=== PATIENT | female | born 1950 | race Caucasian/White ===

== ENCOUNTER 2019-03-14 15:48 | Inpatient (IN) ==
[2019-03-14] MEDS ORDERED: NS 1,000 ML IV PRN (15:58)
--- NOTE | 2019-03-14 16:05 | PROVIDER DOCUMENTATION ---
HPI-Neurological Disorder - General Stated Complaint: STROKE LIKE SYMPTOMS Time Seen by Provider: 03/14/19 15:52 Source: patient Allergies/Adverse Reactions: Patient Allergies Allergy/AdvReac Type Severity Reaction Status Date / Time No Known Allergies Allergy Verified 03/14/19 16:18 Home Medications: Home Medication List Medication Instructions Recorded Confirmed Last Taken Type Atorvastatin Calcium [Lipitor] 1 tab PO DAILY 03/14/19 03/14/19 03/13/19 History Bisoprolol/Hydrochlorothiazide 1 tab PO DAILY 03/14/19 03/14/19 03/14/19 History [Ziac 10-6.25 mg Tablet] Escitalopram Oxalate [Lexapro] 1 tab PO DAILY 03/14/19 03/14/19 03/13/19 History Levothyroxine Sodium [Synthroid] 1 tab PO DAILY 03/14/19 03/14/19 03/14/19 History - History of Present Illness-Neuro Nature of Presenting Problem: 68 YOF WITH PMH OF HTN AND A-FIB PRESENTS WITH C/O AN EPISODE OF EXPRESSIVE APHASIA, DROOLING AND SENSATION ALTERATION IN THE RLE THAT OCCURRED TODAY AT 218PM. SINCE THAT TIME SYMPTOMS HAVE RESOLVED BUT SHE REPORTS SHE DOES "FEEL A LITTLE FUZZY" NEUROLOGICALLY. SHE DENIES CP, SOB, COUGH, N/V/D, FALLS, HEAD INJURY. HER A FIB IS CONTROLLED ON [employer]. SHE ALSO REPORTS SHE WAS BITTEN BY A DEER TICK 6 WKS AGO BUT WAS TREATED BY PCP FOR THIS Severity: reports: moderate Onset/Duration: reports: 1-3 hours ago (2:18 PM) Timing: reports: improving, gone now Context: reports: impaired speech, paresthesia Approximate time patient was last seen normal?: 14:17 Character of Altered Mental Status: reports: disoriented Any recent trauma/injury?: reports: none Character of Deficits: reports: altered sensation (IN RLE), impaired speech, impaired swallowing (FELT IF SHE WAS DROOLING) New weakness or altered sensation location:: reports: RLE Cognitive Baseline: alert, oriented x3 Gait Baseline: walks without assistance Associated Symptoms: reports: denies symptoms Similar Symptoms Previously?: No Recently seen or treated by another doctor?: No Review of Systems - Adult - REVIEW OF SYSTEMS - ADULT Constitutional: reports: no symptoms reported. denies: see HPI, chills, fever, fatique, night sweats, weight gain, weight loss, other Eyes: reports: no symptoms reported. denies: see HPI, discharge, dry eyes, decreased vision, blurred vision, double vision, eye pain, redness, other Ears, Nose, Mouth & Throat: reports: no symptoms reported. denies: see HPI, ear discharge, ear pain, hearing loss, tinnitus, epistaxis, sinus problem, nose pain, loose teeth, mouth/dental pain, mouth swelling, hoarseness, throat pain, throat swelling, other Cardiovascular: reports: no symptoms reported. denies: see HPI, chest pain, edema, heart murmur, irregular heart rate, orthopnea, palpitations, poor circulation, PND, syncope, other Respiratory: reports: no symptoms reported. denies: see HPI, chronic cough, cough, dyspnea on exertion, excessive sputum production, hemoptysis, pleurisy, shortness of breath, wheezing, other Gastrointestinal: reports: no symptoms reported. denies: see HPI, abdominal pain, hematemesis, constipation, diarrhea, difficulty swallowing, frequent heartburn, nausea, poor appetite, rectal bleeding, vomiting, other Genitourinary: reports: no symptoms reported. denies: see HPI, dysuria, discharge, frequency, flank pain, frequent UTI's, hematuria, hesitency, incontinence, urinary retention, urgency, other Musculoskeletal: reports: no symptoms reported. denies: see HPI, bone pain, back pain, frequent leg cramps, joint pain, joint swelling, muscle aches, muscle weakness, neck pain, other Integumentary: reports: no symptoms reported. denies: see HPI, hives, hair loss, itching, mole changes, nail changes, rash, skin sores/ulcer, skin thickening, other Neurological: reports: see HPI, numbness, paresthesia, slurred speech Psychiatric: reports: no symptoms reported. denies: see HPI, anxiety, anti-dep ressant use, alcohol/drug dependence, depression, emotional problems, insomnia, panic attacks, suicidal thoughts, other Endocrine: reports: no symptoms reported. denies: see HPI, change in skin pigment, excessive sweating, goiter, cold intolerance, heat intolerance, increas ed hunger, increased thirst, polyuria, other Hematologic/Lymphatic: reports: no symptoms reported. denies: see HPI, blood clots, easy bruising, low blood count, lymphedema, prolonged bleeding, swollen lymph nodes, transfusions, other Allergic/Immunologic: reports: no symptoms reported. denies: see HPI, allergic reactions, allergic rhinitis, asthma, eczema, food allergy, frequent infections, hay fever, hives, positive PPD, urticaria, other Past History - Adult - PAST MEDICAL HISTORY-ADULT Review of Records: reports: Nursing Assessment Review, Social history reviewed & non-contributory. Physical Exam- Neurological - Physical Exam-Neuro Initial Vital Signs Reviewed: Yes General Appearance: appears well, alert, no apparent distress Eye Exam: bilateral eye: normal inspection, PERRL, EOMI HENMT: normocephalic/atraumatic, moist mucous membranes, normal ENT inspection Head Injury: no evidence of injury Neck: non-tender, full range of motion, supple Respiratory: chest non-tender, lungs clear, normal breath sounds, no pleuratic chest pain, no respiratory distress, no accessory muscle use Cardiovascular: normal peripheral pulses, regular rate, rhythm, no edema, no gallop, no JVD, no murmur Abdominal Exam: normal bowel sounds, non tender, soft Lymphatic: no adenopathy Peripheral Pulses: radial (R): 2+, radial (L): 2+, dorsalis-pedis (R): 2+, dorsalis-pedis (L): 2+ Extremity: normal range of motion, non-tender, normal gait, normal inspection, no pedal edema 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 negative: abnormal speech, facial droop, facial paresthesias, gaze palsy, hearing deficit (R), hearing deficit (L), tongue deviation to R, tongue deviation to L Coordination/Gait: normal finger to nose, normal gait Motor/Sensory: no motor deficit, no sensory deficit, no pronator drift Neurologic: grossly normal Integumentary: normal color, normal turgor, warm/dry Psych/Mental Status: normal mood/affect, oriented x 3 - Glascow Coma Scale Best Eye Response: (4) open spontaneously Best Verbal Response: (5) oriented Best Motor Response: (6) obeys commands Progress - PLAN OF CARE/RESULTS Progress/Plan/Lab Results: Vital Signs - 8 hr 03/14/19 15:58 03/14/19 17:27 03/14/19 18:00 Temperature 98.0 F 98.7 F Pulse Rate 68 62 56 L Respiratory Rate 18 20 15 Blood Pressure 194/71 178/67 187/74 O2 Sat by Pulse Oximetry 97 98 97 Laboratory Results - last 24 hr 03/14/19 03/14/19 03/14/19 17:19 17:19 17:19 WBC 9.74 RBC 5.07 Hgb 14.7 Hct 44.0 MCV 86.8 MCH 29.0 MCHC 33.4 RDW Std Deviation 14.0 Plt Count 306 MPV 11.1 H Immature Gran % (Auto) 0.3 Neut % (Auto) 64.1 Lymph % (Auto) 25.3 [place] % (Auto) 8.9 Eos % (Auto) 1.2 Baso % (Auto) 0.2 Immature Gran # (Auto) 0.03 Neut # (Auto) 6.24 Lymph # (Auto) 2.46 [place] # (Auto) 0.87 H Eos # (Auto) 0.12 Baso # (Auto) 0.02 PT 13.3 INR 1.00 PTT (Actin FS) 30.0 Sodium 139 Potassium 4.1 Chloride 99 Carbon Dioxide 26 Anion Gap 14 BUN 16 Creatinine 1.2 H Estimated GFR/1.73 m2 45 BUN/Creatinine Ratio 13 Glucose 95 POC Glucose Calculated Osmolality 279 Calcium 9.6 Total Bilirubin 0.18 L AST 26 ALT 25 Alkaline Phosphatase 106 H Troponin T Total Protein 6.9 Albumin 4.5 Globulin 2.4 Albumin/Globulin Ratio 1.9 Urine Source Urine Color Urine Turbidity Urine pH Ur Specific [place] Urine Protein Ur Glucose (Stick) Ur Ketones (Stick) Urine Blood Urine Nitrite Urine Bilirubin Urobilinogen Dipstick Urine Leukocytes Urine WBC (Auto) Urine RBC (Auto) U Epithel Cells (Auto) Urine Bacteria (Auto) Urine Opiates Screen Ur Oxycodone Screen Ur Methadone, Qual Ur Barbiturates Screen Ur Phencyclidine Scrn Ur Amphetamines Screen U Benzodiazepines Scrn Urine Cocaine Screen U Cannabinoids Screen 03/14/19 03/14/19 03/14/19 17:19 17:25 17:25 WBC RBC Hgb Hct MCV MCH MCHC RDW Std Deviation Plt Count MPV Immature Gran % (Auto) Neut % (Auto) Lymph % (Auto) [place] % (Auto) Eos % (Auto) Baso % (Auto) Immature Gran # (Auto) Neut # (Auto) Lymph # (Auto) [place] # (Auto) Eos # (Auto) Baso # (Auto) PT INR PTT (Actin FS) Sodium Potassium Chloride Carbon Dioxide Anion Gap BUN Creatinine Estimated GFR/1.73 m2 BUN/Creatinine Ratio Glucose POC Glucose Calculated Osmolality Calcium Total Bilirubin AST ALT Alkaline Phosphatase Troponin T < 0.010 Total Protein Albumin Globulin Albumin/Globulin Ratio Urine Source CLEAN CATCH Urine Color STRAW Urine Turbidity CLEAR Urine pH 6.5 Ur Specific [place] 1.006 Urine Protein NEGATIVE Ur Glucose (Stick) NEGATIVE Ur Ketones (Stick) NEGATIVE Urine Blood NEGATIVE Urine Nitrite NEGATIVE Urine Bilirubin NEGATIVE Urobilinogen Dipstick NORMAL Urine Leukocytes NEGATIVE Urine WBC (Auto) <10 Urine RBC (Auto) <10 U Epithel Cells (Auto) <10 Urine Bacteria (Auto) NEGATIVE Urine Opiates Screen NONE DETECTED Ur Oxycodone Screen NONE DETECTED Ur Methadone, Qual NONE DETECTED Ur Barbiturates Screen NONE DETECTED Ur Phencyclidine Scrn NONE DETECTED Ur Amphetamines Screen NONE DETECTED U Benzodiazepines Scrn NONE DETECTED Urine Cocaine Screen NONE DETECTED U Cannabinoids Screen NONE DETECTED 03/14/19 17:52 WBC RBC Hgb Hct MCV MCH MCHC RDW Std Deviation Plt Count MPV Immature Gran % (Auto) Neut % (Auto) Lymph % (Auto) [place] % (Auto) Eos % (Auto) Baso % (Auto) Immature Gran # (Auto) Neut # (Auto) Lymph # (Auto) [place] # (Auto) Eos # (Auto) Baso # (Auto) PT INR PTT (Actin FS) Sodium Potassium Chloride Carbon Dioxide Anion Gap BUN Creatinine Estimated GFR/1.73 m2 BUN/Creatinine Ratio Glucose POC Glucose 90 Calculated Osmolality Calcium Total Bilirubin AST ALT Alkaline Phosphatase Troponin T Total Protein Albumin Globulin Albumin/Globulin Ratio Urine Source Urine Color Urine Turbidity Urine pH Ur Specific [place] Urine Protein Ur Glucose (Stick) Ur Ketones (Stick) Urine Blood Urine Nitrite Urine Bilirubin Urobilinogen Dipstick Urine Leukocytes Urine WBC (Auto) Urine RBC (Auto) U Epithel Cells (Auto) Urine Bacteria (Auto) Urine Opiates Screen Ur Oxycodone Screen Ur Methadone, Qual Ur Barbiturates Screen Ur Phencyclidine Scrn Ur Amphetamines Screen U Benzodiazepines Scrn Urine Cocaine Screen U Cannabinoids Screen Orders Category Date Time Status Cardiac Monitoring DIRECTED Care 03/14/19 15:58 Active Finger Stick Blood Sugar (ED) DIRECTED Care 03/14/19 15:58 Completed Saline Loc NOW Care 03/14/19 15:58 Active CHEST-PORTABLE [RAD] Stat Exams 03/14/19 15:[address] HEAD W/O CONTRAST [CT] Stat Exams 03/14/19 15:58 Completed CBC WITH ELECTRONIC DIFF [HEME] Stat Lab 03/14/19 17:19 Completed COMPREHENSIVE METABOLIC PANEL [CHEM] Stat Lab 03/14/19 17:19 Completed PROTIME WITH INR [COAG] Stat Lab 03/14/19 17:19 Completed PTT [COAG] Stat Lab 03/14/19 17:19 Completed TROPONIN T Stat Lab 03/14/19 17:19 Completed URINALYSIS W/POSS RFLX CULT [URINALYSIS] Stat Lab 03/14/19 17:25 Completed URINE DRUG SCREEN Stat Lab 03/14/19 17:25 Completed 0.9% Sodium Chloride Inj [Ns] 1,000 ml Med 03/14/19 15:58 Active IV 30 mls/hr EKG [EKG] Stat Ther 03/14/19 15:58 Ordered Result Diagrams: 03/14/19 17:19 03/14/19 17:19 - EKG 1 Time of EKG reading by physician:: 17:56 EKG Read and Signed by:: Sotero Kim EKG Interpretation (*Must complete 3 of following elements*): Abnormal Rate: 53 Rhythm: SB [place]: normal QRS: normal [place] Interval: normal ST Wave: non-specific ST changes Prior EKG Comparison: no prior EKG - XRAY 1 XRAY Study: Chest Impression: See EMR Report (EXAM: CHEST-PORTABLE INDICATION: stroke like symptoms TECHNIQUE: One view COMPARISON: None. FINDINGS: There is trace subsegmental atelectasis versus scarring at the left costophrenic angle. The lungs are grossly clear, otherwise. There is no discrete pleural fluid collection or pneumothorax. The cardiomediastinal silhouette and central vasculature are grossly unremarkable. IMPRESSION: Trace left basilar subsegmental atelectasis versus scarring. No definite acute chest pathology, otherwise. Electronically signed by Bronson Noe 03/14/2019 4:38 PM 03/14/19 [id number] Interpreting Physician: Bronson Noe MD Dictated Date/Time: 03/14/19 2387 cc: Stacey Rivas; Robert Hsu MD) - CT/MRI 1 CT Study: Head Impression: See EMR Report (EXAM: CT HEAD W/O CONTRAST INDICATION: stroke like symptoms TECHNIQUE: This exam was performed using automated exposure control, adjustment of mA or kV according to patient size, and/or use of iterative reconstruction technique. COMPARISON: None. FINDINGS: There is minimal patchy low attenuation in the periventricular white matter suggesting very mild microangiopathy. There is a near CSF density focus at the medial aspect of the right occipital lobe that probably relates to an old infarct. There is no definite acute infarct given the limited sensitivity of CT versus MRI. There is no discrete intracranial mass, mass effect, or intracranial hemorrhage. The surrounding soft tissues and bony structures are essentially unremarkable. IMPRESSION: Chronic appearing changes as detailed above. No definite acute intracranial pathology by CT. Electronically signed by Bronson Noe 03/14/2019 4:37 PM 03/14/19 1637 Interpreting Physician: Bronson Noe MD Dictated Date/Time: 03/14/19 1635 cc: Stacey Rivas; Robert Hsu MD) - CONSULTS/PCP/HOSPITALIST Notification #1 *Consult/PCP/Hospitalist*: DR. SANTAMARIA Time Discussed: 18:40 Consult Disposition: Admit Departure - Departure Date of Disposition Decision: 03/14/19 Time of Disposition Decision: 18:40 DIAGNOSIS: TIA (transient ischemic attack) Disposition: ADMITTED INPATIENT 09 Certified Medical Emergency: Emergent Condition: Stable Referrals and Follow-Ups: Robert Hsu MD [Primary Care Provider] - - Critical Care Note This patient required my direct & personal management of CC.: No Attestation - Physician/ JAJA Attestation Patient care was provided by Advanced Practice Provider:: Yes Advanced Practice Provider:: Stacey Rivas Advanced Practice Provider documentation review:: The Mid-level provider documentation, treatment plan and medical decision making was reviewed by the physician who agrees with all treatment and medical decision making by the MLP. The physician spent face to face time with patient:: No Advanced Practice Provider documentation review:: Supervising physician onsite and consulted in the evaluation and care of this patient. The physician did not have a face to face encounter with the patient. - NIH Stroke Scale NIH Type: Initial Evaluation Level of Consciousness: 0-Alert LOC Questions (ask month and age): 0-Answers Both Correctly LOC Commands (ask to open & close eyes;make a fist, let go): 0-Obeys Both Correctly Best Gaze (horizontal eye movement): 0-Normal Visual (use finger movement, counting or visual threat): 0-No Visual Loss Facial Palsy (show teeth or raise eyebrows & close eyes tght: 0-Symmetrical Movement Motor Function-left arm: 0-Normal Motor Function-right arm: 0-Normal Motor Function-left le-Normal Motor Function-right le-Normal Limb Ataxia(difvmc-[id number], or heel to salomon): 0-No Ataxia Sensory(pin prick to face,arms,trunk,legs-compare side/side): 0-No Ataxia Best Language(name item/read sentence.Ex-Down to Earth): 0-No Aphasia Dysarthria(Pt read words or say words Ex.Mama,Tip-Top,Thanks: 1-Mild-Mod Slurring Words Extinction and Inattention: 0-Normal
--- NOTE | 2019-03-14 16:39 | Diag Imaging Result Doc PS360 ---
EXAM: CT HEAD W/O CONTRAST INDICATION: stroke like symptoms TECHNIQUE: This exam was performed using automated exposure control, adjustment of mA or kV according to patient size, and/or use of iterative reconstruction technique. COMPARISON: None. FINDINGS: There is minimal patchy low attenuation in the periventricular white matter suggesting very mild microangiopathy. There is a near CSF density focus at the medial aspect of the right occipital lobe that probably relates to an old infarct. There is no definite acute infarct given the limited sensitivity of CT versus MRI. There is no discrete intracranial mass, mass effect, or intracranial hemorrhage. The surrounding soft tissues and bony structures are essentially unremarkable. IMPRESSION: Chronic appearing changes as detailed above. No definite acute intracranial pathology by CT. Electronically signed by Bronson Noe 03/14/2019 4:37 PM
--- NOTE | 2019-03-14 16:40 | Diag Imaging Result Doc PS360 ---
EXAM: CHEST-PORTABLE INDICATION: stroke like symptoms TECHNIQUE: One view COMPARISON: None. FINDINGS: There is trace subsegmental atelectasis versus scarring at the left costophrenic angle. The lungs are grossly clear, otherwise. There is no discrete pleural fluid collection or pneumothorax. The cardiomediastinal silhouette and central vasculature are grossly unremarkable. IMPRESSION: Trace left basilar subsegmental atelectasis versus scarring. No definite acute chest pathology, otherwise. Electronically signed by Bronson Noe 03/14/2019 4:38 PM
[2019-03-14 17:49] LABS: URINE SOURCE CLEAN CATCH
[2019-03-14 17:58] LABS: BASO# 0.02 X1000 (0.0-0.2); BASO% 0.2 % (0.0-0.8); EOS# 0.12 X1000 (0.0-0.7); EOS% 1.2 % (0.0-10.0); HEMOGLOBIN 14.7 g/dL (12.0-16.0); IMM GRAN# 0.03 X1000 (0.0-0.04); IMM GRAN% 0.3 % (0.0-0.5); LYMPH# 2.46 X1000 (1.2-3.4); LYMPH% 25.3 % (20.5-51.1); MCHC 33.4 g/dL (33-37); MCV 86.8 FL (81-99); MONO# 0.87 X1000 (0.11-0.59); MONO% 8.9 % (1.7-9.3); MPV 11.1 FL (7.4-10.4); NEUT# 6.24 X1000 (1.4-6.5); NEUT% 64.1 % (42.2-75.2); PLT 306 X1000 (130-400); RBC 5.07 XMIL (4.2-5.4); WBC 9.74 X1000 (4.8-10.8)
[2019-03-14 17:59] LABS: BILIRUBIN URINE NEGATIVE (NEGATIVE); BLOOD URINE NEGATIVE (NEGATIVE); COLOR STRAW; GLUCOSE URINE NEGATIVE (NEGATIVE); KETONE URINE NEGATIVE (NEGATIVE); LEUKOCYTES URINE NEGATIVE (NEGATIVE); NITRITE URINE NEGATIVE (NEGATIVE); PH URINE 6.5; PROTEIN URINE NEGATIVE (NEGATIVE); SP GRAVITY URINE 1.006; TURBIDITY URINE CLEAR (CLEAR); UROBILINOGEN URINE NORMAL (NORMAL)
[2019-03-14 18:00] LABS: UR EPITHELIAL CELLS <10 /HPF (<10); URINE BACTERIA NEGATIVE /HPF; URINE RBC <10 /HPF (<10); URINE WBC <10 /HPF (<10)
[2019-03-14 18:02] LABS: UR AMPHETAMINES QUAL NONE DETECTED (NONE DETECT); UR BARBITUATES QUAL NONE DETECTED (NONE DETECT); UR BENZODIAZEPIN QUAL NONE DETECTED (NONE DETECT); UR CANNABINOIDS QUAL NONE DETECTED (NONE DETECT); UR COCAINE QUAL NONE DETECTED (NONE DETECT); UR METHADONE QUAL NONE DETECTED (NONE DETECT); UR OPIATES QUAL NONE DETECTED (NONE DETECT); UR OXYCODONE QUAL NONE DETECTED (NONE DETECT); UR PCP QUAL NONE DETECTED (NONE DETECT)
[2019-03-14 18:13] LABS: PROTIME 13.3 Seconds (11.0-16.0)
[2019-03-14 18:18] LABS: ALB/GLOB RATIO 1.9; ALBUMIN 4.5 g/dL (3.5-5.0); CALCIUM 9.6 mg/dL (8.8-10.2); CREATININE 1.2 mg/dL (0.5-0.9); POTASSIUM 4.1 mmol/L (3.5-5.1); TOTAL BILIRUBIN 0.18 mg/dL (0.20-1.00); TOTAL PROTEIN 6.9 g/dL (6.3-8.3)
[2019-03-14] MEDS ORDERED: APRESOLINE IV PRN (20:23)
--- NOTE | 2019-03-14 20:48 | EKG Report ---
Test Performed on : 03/14/2019 5:55:04 PM Test Reason : Stroke like symptoms Blood Pressure : / mmHG Vent. Rate : 053 BPM Atrial Rate : 053 BPM P-R Int : 164 ms QRS Dur : 084 ms QT Int : 460 ms P-R-T Axes : 066 008 013 degrees QTc Int : 431 ms Sinus bradycardia. Minimal voltage criteria for LVH, may be normal variant Nonspecific T wave abnormality Abnormal ECG When compared with ECG of 19-MAY-2010 03:22, Vent. rate has decreased BY 52 BPM Nonspecific T wave abnormality now evident in Lateral leads Unconfirmed Result
[2019-03-14] MEDS ORDERED: TYLENOL PO PRN (22:13)
[2019-03-14] MEDS ORDERED: ZOFRAN IV PRN (22:13)
--- NOTE | 2019-03-14 22:49 | HISTORY AND PHYSICAL ---
CHIEF COMPLAINT: Stroke-like symptoms, slower speech, inability to talk. HISTORY OF PRESENT ILLNESS: A 68-year-old female with a past medical history of hypertension. She presented to the emergency department complaining of an episode of expressive aphasia, after doing some kind of physical activity, associated with dizziness, slurred speech and not finding words to talk. That happened around 1:30 p.m. and that lasted around 10 minutes. Then, a few hours later it happen again and lasted 5 to 6 minutes, also associated with left-sided drooling, dizziness. She never had this kind of problem before, but this slurred speech, expressive aphasia and drooling resolved completely. Apparently, she has been having atrial fibrillation, but I do not see any anticoagulations on her medications. I will call her pharmacy in the morning. She does have a past medical history also of dyslipidemia and she has been on Lipitor, hypertension, anxiety, and hypothyroidism, she denies nausea, vomiting, diarrhea, constipation, chest pain, shortness of breath, dysuria, and cough. She will be admitted. We will get some images done including an MRI of the head, also echocardiogram and carotic ultrasound, and probably the Neurology Department also will be consulted. REVIEW OF SYSTEMS: This patient has been losing weight, but this has been intentionally. All the 14 points of review of systems were reviewed. All of them negative except as per HPI. PAST MEDICAL HISTORY: Hypertension, hypothyroidism, dyslipidemia, anxiety, and apparently atrial fibrillation. SURGICAL HISTORY: Hysterectomy in her 40s, a bladder prolapse repair, laparoscopic cholecystectomy in 1997. SOCIAL HISTORY: She denies alcohol, tobacco use, or drugs. 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 ALLERGIES: She denies allergies to medications. Occasionally she has nausea with erythromycin. PAST FAMILY HISTORY: Mother with stroke, breast cancer and cervical cancer. Sister with breast cancer. PHYSICAL EXAMINATION: VITAL SIGNS: Temperature 98.7 degrees, pulse 56, respiratory rate 15, blood pressure 187/74, oxygen saturation 97% on room air. HEENT: Head normocephalic, no trauma. PERRLA. NECK: Is supple. No JVD. No masses. Central trachea. CHEST: Clear to auscultation. No wheezing. No rales. ABDOMEN: Soft, nontender, nondistended. No hepatosplenomegaly. EXTREMITIES: No edema, no clubbing, no cyanosis. NEUROLOGICAL: The patient is alert. She is oriented x3. No focal neurological deficits. LABORATORY: WBC 9.7, hemoglobin 14.7, hematocrit 44, platelets 306,000. Sodium 139, potassium 4.1, chloride 99, bicarbonate 26, BUN 16, creatinine 1.2, glucose 95, calcium 9.6, AST 26, ALT 25, alkaline phosphatase 106. Troponin negative x1. Urine toxicology negative. ASSESSMENT AND PLAN: 1. Episode of expressive aphasia, drooling associated also with dizziness, likely transient ischemic attack. We will get a brain MRI and also carotic ultrasound and echocardiogram. Apparently, she has a history of atrial fibrillation, but I do not see any type of anticoagulation. At this moment, she is in normal sinus rhythm. I will get more medications at her pharmacy tomorrow morning. In the meantime, I will monitor. I will allow permissive hypertension. I will probably ask the Neurology Department to evaluate this patient. 2. Hypothyroidism. Continue with Synthroid. 3. Anxiety. Continue with Lexapro. 4. Hyperlipidemia. Continue with Lipitor. The dose of Lipitor probably has to be increased. I requested a lipid profile anyway and she has been placed on aspirin. Further recommendations pending hospital course. cc: Shar Heaton MD
[2019-03-15] MEDS: SYNTHROID PO SCH ×2 (03:48→10:30)
[2019-03-15 07:18] LABS: BASO# 0.03 X1000 (0.0-0.2); BASO% 0.3 % (0.0-0.8); EOS# 0.14 X1000 (0.0-0.7); EOS% 1.6 % (0.0-10.0); HEMATOCRIT 43.1 % (37.0-47.0); HEMOGLOBIN 14.2 g/dL (12.0-16.0); LYMPH# 1.84 X1000 (1.2-3.4); LYMPH% 21.2 % (20.5-51.1); MCH 28.6 PG (27-31); MCHC 32.9 g/dL (33-37); MCV 86.7 FL (81-99); MONO# 0.64 X1000 (0.11-0.59); MONO% 7.4 % (1.7-9.3); MPV 10.9 FL (7.4-10.4); NEUT# 6.04 X1000 (1.4-6.5); NEUT% 69.5 % (42.2-75.2); PLT 285 X1000 (130-400); RBC 4.97 XMIL (4.2-5.4); RDW 13.8 % (11.5-14.5); WBC 8.69 X1000 (4.8-10.8)
[2019-03-15 07:45] LABS: AGAP 16; BUN 13 mg/dL (8-22); CALCIUM 9.1 mg/dL (8.8-10.2); CHLORIDE 101 mmol/L (98-107); CHOLESTEROL 194 mg/dL (0-200); COSMO 277; ESTIMATED GFR 55; GLUCOSE 94 mg/dL (70-104); HDL 45 mg/dL (45-65); LDL 114 mg/dL; POTASSIUM 4.1 mmol/L (3.5-5.1); SODIUM 139 mmol/L (136-145); TCO2 22 mmol/L (25-35); TRIGLYCERIDES 173 mg/dL (35-135); VLDL 35 mg/dL
--- NOTE | 2019-03-15 07:49 | EKG Report ---
Test Performed on : 03/15/2019 07:38:08 AM Test Reason : afib Blood Pressure : / mmHG Vent. Rate : 055 BPM Atrial Rate : 055 BPM P-R Int : 170 ms QRS Dur : 076 ms QT Int : 508 ms P-R-T Axes : 056 041 034 degrees QTc Int : 485 ms Sinus bradycardia. Possible Left atrial enlargement Nonspecific ST abnormality Abnormal ECG When compared with ECG of 14-MAR-2019 17:55, (Unconfirmed) Nonspecific T wave abnormality no longer evident in Lateral leads Unconfirmed Result
[2019-03-15] MEDS ORDERED: ZIAC 10/6.25 MG PO SCH (09:00)
[2019-03-15] MEDS ORDERED: LIPITOR PO SCH (09:00)
[2019-03-15] MEDS: ZEBETA PO SCH (10:30)
[2019-03-15] MEDS: LEXAPRO PO SCH (10:30)
[2019-03-15] MEDS: HYDROCHLOROTHIAZIDE PO SCH (10:30)
--- NOTE | 2019-03-15 13:06 | Diag Imaging Result Doc PS360 ---
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 The left anterior cerebral appears to be supplied by the anterior communicating artery. This is presumably a congenital anomaly. Similarly the P1 segment is absent on the left and the posterior cerebral is supplied through the posterior communicating artery. There is no evidence of aneurysm. There is some diminishment in the branches of the left middle cerebral artery anteriorly in the sylvian fissure. The possibility of small vessel disease cannot be excluded. This may be of particular significance given the findings on the MRI study. IMPRESSION: The possibility of occlusion of one or more small branches of the left middle cerebral artery in the sylvian fissure cannot be excluded. Electronically signed by Carson Abrams 03/15/2019 1:04 PM
--- NOTE | 2019-03-15 13:31 | Diag Imaging Result Doc PS360 ---
EXAM: MRI BRAIN W/WO CONTRAST 03/15/2019 HISTORY: stroke TECHNIQUE: T1 sagittal, axial and post gadolinium-enhanced axial with coronal reformation, axial T2, FLAIR, DWI and coronal gradient echo. COMMENT: There are no previous studies. There is no evidence of mass effect, bleed, or abnormal extra-axial fluid collection. There are some patchy areas of increased T2-weighted signal intensity in the cortex and subcortical white matter of the posterior left frontal lobe, and the occipital lobe on the right. The latter is probably associated with some degree of encephalomalacia. There is some parasylvian diffusion restriction present in the left temporal lobe. This focus measures less than 9 mm in diameter. There is no evidence of abnormal gadolinium enhancement. No masses or abnormal fluid collections are present. There is no evidence of bleed. IMPRESSION: Small focus of acute ischemia in the left parasylvian temporal lobe. Chronic ischemic changes elsewhere as described above. The findings were discussed with OSCAR Villarreal at 03/15/2019 1:29 PM. Electronically signed by Carson Abrams 03/15/2019 1:29 PM
[2019-03-15] MEDS: ASPIRIN PO SCH (14:43)
--- NOTE | 2019-03-15 15:28 | PROGRESS NOTE ---
DATE: 03/15/2019 SUBJECTIVE: This patient feels better today. She is not having any focal problems. She is able to ambulate and actually when I examined this patient, she just was getting out from the shower by herself. is at the bedside. Physical exam did not show any focal lesions. We do have a brain MRI that showed a small focus of acute ischemia in the left perisylvian temporal lobe and chronic ischemic changes elsewhere. This patient is already on aspirin. I increased the dose of the atorvastatin from 10 to 20 since the triglyceride and cholesterol are slightly elevated. This patient has not been getting blood pressure medications since yesterday because we allowed permissive hypertension on this patient. So, I just received the MRI result, and I will discuss this with the patient. OBJECTIVE: Vital Signs: Temperature 97.8 degrees, pulse 53, respiratory rate 16, blood pressure 150/49, oxygen saturation 96 on room air. HEENT: Head normocephalic, no trauma. PERRLA. Neck: Supple. No JVD. No masses. Central trachea. Chest: Clear to auscultation. No wheezing. No rales. Abdomen: Soft, nontender, nondistended. No hepatosplenomegaly. Extremities: No edema, no clubbing, no cyanosis. Neurological examination: The patient is alert. She is oriented x3. No focal deficits. LABORATORY: WBC 8.6, hemoglobin 14.2, hematocrit 43.1, platelets 285. Sodium 131, potassium 4.1, chloride 101, bicarbonate 22. BUN 13, creatinine 1, glucose 94, calcium 9.1. Triglyceride 173, cholesterol 194. ASSESSMENT AND PLAN: 1. Episode of expressive aphasia, drooling associated with dizziness due to a small focus of acute stroke in the left perisylvian temporal lobe. Also, the MRI showed chronic ischemic changes elsewhere as described. I will continue with the same management. She has been placed on aspirin. I have increased the dose of the statins. I will start her blood pressure medication today in the afternoon. I allowed 24 hours of hypertension and I will monitor. Neurology Department on board. 2. Hypertension as above. 3. Anxiety. Continue with Lexapro. 4. Hyperlipidemia. Continue with Lipitor which I have increased from 10 to 20 mg. On previous reports, I found out that this patient has a history of atrial fibrillation. At this moment, she is in sinus rhythm though, I will discuss again with the patient today about these findings. cc: Shar Heaton MD
--- NOTE | 2019-03-15 18:16 | ECHO REPORT ---
ORDER DATE: 03/15/2019 INTERPRETING PHYSICIAN: Vernon Levy MD. REQUESTING PHYSICIAN: Dr. Christian. INDICATIONS: TIA. Hypertension. Dyspnea. M-MODE MEASUREMENTS: Left ventricle end diastole: 4.1 cm. Left ventricle end systole: 2.5 cm. Posterior wall: 1.2 cm. Interventricular septum: 1.2 cm. Left atrium: 3.7 cm. Aortic diameter: 2.9 cm. SUMMARY OF 2-DIMENSIONAL IMAGIN. Left ventricular function is normal. Ejection fraction appears to be in the order of 65% to 70%. There is no wall motion abnormality. The ventricle is mildly hypertrophic. 2. The right ventricle is normal. 3. The aortic valve looks normal. Color flow mapping unremarkable. 4. The mitral valve looks normal. Color flow mapping unremarkable. 5. Pulsed wave Doppler of mitral inflow shows normal E/A ratio. 6. Tissue Doppler of septal and lateral mitral annulus averages 7 cm. There is no diastolic dysfunction. 7. There is mild degree of mitral regurgitation. 8. The tricuspid valve looks grossly normal. Color flow mapping unremarkable. 9. Pulmonary pressure is estimated at 29 mmHg. The pulmonic valve is normal. Color flow mapping unremarkable. 10.There is no pericardial effusion, no mass, and no thrombus. SUMMARY: This study echocardiographic study is really unremarkable. It shows normal left ventricular function with mild degree of concentric left ventricular hypertrophy. There is no diastolic dysfunction. The pulmonary pressure appears to be normal. There is only very mild degree of mitral and tricuspid regurgitation. Clinical correlation is recommended. cc: Vernon eLvy MD
--- NOTE | 2019-03-15 19:14 | CONSULTATION ---
DATE OF CONSULTATION: 03/15/2019 HISTORY OF PRESENT ILLNESS: Ms. Silva is 68 years old and history sounds like TIA. She reports sudden onset at 1:30 p.m. yesterday, of inability to speak clearly when she tried to call to her dog. She had a funny feeling along the right leg. There was no other sensory disturbance. There was no vision disturbance. She did not have any motor deficit. She was able to stand and walk. She did not lose consciousness. She rested for about 30 minutes and seemed recovered. She believes she was able to call to her dog without difficulty at that time. A short time later, she had recurrent inability to make her words. During that episode, she called her by phone. reports speech was "gibberish," but he could understand what she was saying and she did not seem to have trouble understanding him. She was brought to the hospital. She seemed well initially and then had a third episode of difficulty finding words. The second and third episodes yesterday were not associated with sensory symptom or other deficit. She developed mild, dull, left sided headache during the day yesterday. She reports that headache was similar to what she has had in the past and she has attributed that to "sinus" problems. She has never had speech difficulty or other neurologic deficit associated with a headache before yesterday. She has atrial fibrillation. She does not take antiplatelet or anticoagulant medicine. She has hypertension and dyslipidemia. She does not have diabetes mellitus. She does not smoke cigarettes. She has not had previous stroke, SD, or other ischemic event. She has been afebrile here. Heart rate has ranged 50s to 60s (she is on bisoprolol). Systolic blood pressure was initially 190s, recent hours 140s-160s. Urine drug screen was negative. Chemistry was unremarkable. Noncontrast CT shows no definite acute change. She has had carotid ultrasound with report pending. Brain MRI is scheduled. PHYSICAL EXAMINATION: On exam, she is awake, alert, attentive, and appropriate. Speech is not dysarthric. Language function is intact on careful bedside testing of fluent speech, repeating, naming, comprehension, repeating, and reading. I did not test handwriting. Memory is good. Head and neck are unremarkable. Visual ledezma are full tested by confrontational finger counting. Extraocular movements are full. Facial motility is symmetric. Gag is intact. Tongue is midline. Hearing is good. Shoulder shrug is equal. Strength is normal in the arms and legs. She did well on [id number] testing bilaterally. Limb tone is symmetric. She reports equal sensation over the limbs. Proprioception is good at the great toe MTP joint bilaterally. Gait is unremarkable. Plantar response is silent bilaterally. IMPRESSION AND PLAN: History of transient difficulty communicating with speech. The first two episodes were witnessed mainly by her dog. She did speak with her during the second episode by phone. In light of her age and risk factors, transient ischemic attack is most likely. Migraine and seizure are not excluded. Since she is stable now, I do not think we have to do anything urgently. Further plans will depend on the carotid report and on the MRI. If there are not contraindications, she may be a candidate for longer term anticoagulation in light of her reported atrial fibrillation. Thanks for asking Neurology to see Ms. Silva. cc: Israel Davenport III, MD MTDD
[2019-03-16] MEDS: SYNTHROID PO SCH (06:19)
[2019-03-16 08:34] VITALS: BP 143/60
[2019-03-16] MEDS ORDERED: LIPITOR PO SCH (09:00)
[2019-03-16] MEDS: ZEBETA PO SCH (09:12)
[2019-03-16] MEDS: HYDROCHLOROTHIAZIDE PO SCH (09:12)
[2019-03-16] MEDS: ASPIRIN PO SCH (09:13)
[2019-03-16] MEDS: LEXAPRO PO SCH (09:13)
[2019-03-16] MEDS ORDERED: PNEUMOVAX 23 IM ONE (10:47)
--- NOTE | 2019-03-16 12:16 | Carotid Study ---
DATE: 03/15/2019 REQUESTING PROVIDER: Cedrick. WORKERS' COMPENSATION HEARINGS OFFICER: Anthony. INDICATIONS: 1. Transient ischemic attack. 2. Speech problems. EQUIPMENT: [employer] Vivid E9 ultrasound system a 9 L-D transducer. FINDINGS: Complete diagram of ultrasound images can be seen scanned in the patient's medical record. The peak systolic velocity noted on the right side is in the mid internal carotid artery and is noted to be 85. The peak systolic velocity noted on the left side is noted in the distal internal carotid artery and is noted to be 99. The calculated internal to common ratio on the right is 1.01, left 1.31. The calculated stenosis on the right is 0 to 39 percent, left 0 to 39 percent. There is some atherosclerosis noted to bilateral carotid arteries, but at this time does not produce a hemodynamically significant flow-limiting stenosis. There is also incidentally noted thyroid nodule on the left side which is incompletely visualized on this study. Both vertebral arteries are antegrade flow. INTERPRETATION: By strict velocity criteria, no hemodynamically significant flow-limiting stenosis noted. There is a thyroid nodule noted on the left side, which I would recommend getting a dedicated thyroid ultrasound to evaluate further because this is incompletely visualized on this study. cc: Prosper Hall MD
--- NOTE | 2019-03-16 12:46 | PROGRESS NOTE ---
DATE: 03/16/2019 SUBJECTIVE: Ms. Silva reports no further problems with language and no new neurologic deficit. She feels well today. OBJECTIVE: MRI scan shows a tiny area of restricted diffusion consistent with recent small infarction in the left perisylvian region. There is also evidence of older encephalomalacia in the right occipital lobe. Brain MRA did not show anything definitely remarkable. Her systolic blood pressures have been stable, 120s-160s over the last 24 hours. ASSESSMENT AND PLAN: In light of the history of atrial fibrillation and imaging evidence of bilateral small cerebral infarctions, I think it would be reasonable to consider recommending anticoagulation. I discussed that with her. However, final decision would rest with her hospital attending or her primary care clinic or instructional coach. From a neurologic standpoint, I do not think there is anything further we need to do right now. I encouraged her to be careful with activities, to report any new symptoms, to make sure she takes her medicines correctly and to keep follow-up with her other doctors. I will be glad to see her again, if needed. Thanks for asking Neurology to see Ms. Silva. cc: MD MARIJA Locke III
--- NOTE | 2019-03-17 09:18 | DISCHARGE SUMMARY ---
ADMISSION DATE: 03/14/2019 DISCHARGE DATE: 03/16/2019 CONSULTATIONS: Dr. Israel Davenport with Neurology. PERTINENT PROCEDURES: 1. Initial head CT: Chronic appearing changes but no definite acute intracranial pathology. 2. Brain MRA is the possibility of occlusion of one of the small branches of the left middle cerebral artery. 3. Brain MRI. Small focus of acute ischemia in the left temporal lobe. Chronic ischemic changes elsewhere. 4. Echocardiogram EF of 65 to 70 percent. DISCHARGE DIAGNOSES: 1. Small focus of acute ischemia in the left perisylvian temporal lobe. The patient did have transient difficulty communication with speech. All symptoms have since resolved and she will be discharged home on full-dose aspirin and a statin. A follow-up with Dr. Davenport in one month. 2. Hypertension continue home medications. 3. Anxiety. Continue Lexapro. 4. Hyperlipidemia. Continue statin that has been increased from 10 to 20. HOSPITAL COURSE: Briefly, Ms. Silva is a 68-year-old female with a past medical history of hypertension, presented to the ED complaining of an episode of expressive aphasia after physical activity associated with dizziness, slurred speech and not finding her words to talk. It happened around 1:30 p.m. and lasted for about 10 minute and a few hours later happened again and lasted for 5 to 6 minutes. It was also associated with left sided drooling, dizziness. She reported that she does have a history of atrial fibrillation, but she was not on any kind of anticoagulation or medication that indicate history of afib. Our initial head CT did not show anything acute. Follow-up brain MRI the next day did show an acute stroke on the left side in the temporal lobe. She was followed by Dr. Davenport with Neurology and she will continue on full-dose aspirin and statin and follow up with Dr. Davenport in a month. VITAL SIGNS: At time of discharge, temperature is 98 degrees, heart rate 71, respirations 16, blood pressure 143/60, O2 is 98% on room air. DISCHARGE DIET: Healthy heart. DISCHARGE MEDICATIONS: 1. Lexapro 20 mg p.o. daily. 2. Synthroid 50 mcg p.o. daily. 3. Ziac 10-6.25 mg 1 tab p.o. daily. 4. Aspirin 325 mg p.o. daily. 5. Lipitor 20 mg p.o. daily. FOLLOWUP: Ms. Silva is being discharged back home with her . She is to follow up with Dr. Davenport in one month as well as her primary care doctor to discuss if she in fact does have atrial fibrillation and will need to be on long-term anticoagulation and so she is take all medications as prescribed. She can return to the ED or call 911 for any worsening of symptoms. Dictated by OSCAR Hampton for Shar Heaton MD cc: MD Israel Haines III, MD MTDD
== END 2019-03-16 11:27 | disposition home or self-care (01) | DRG 66 ==
LOC: ED 15:48 → 3N 15:49
PROVIDERS: ATTEND Internal Medicine